=== PATIENT | female | born 1980 | race Caucasian/White ===

== ENCOUNTER 2020-09-15 12:31 | Outpatient (REF) | payer BC, SELFPAY ==
[2020-09-15 20:35] LABS: ALT 24 U/L (14-59); AST 14 U/L (15-37); Albumin 4.3 g/dL (3.4-5.0); Alkaline Phosphatase 73 U/L (46-116); Anion Gap 8.9 mmol/L (3-11); BUN 18 mg/dL (7-18); Bilirubin, Total 0.4 mg/dL (0.2-1.0); CO2 30.1 mmol/L (21.0-32.0); CREATININE 0.7 mg/dL (0.55-1.02); Calcium 9.5 mg/dL (8.5-10.1); Calculated LDL 104 mg/dL (<100); Chloride 104 mmol/L (98-107); Cholesterol 174 mg/dL (<200); Glucose 79 mg/dL (74-106); HDL Cholesterol 63 mg/dL (40-60); Potassium 4.3 mmol/L (3.5-5.1); Sodium 143 mmol/L (136-145); Total Protein 7.6 g/dL (6.4-8.2); Triglyceride 36 mg/dL (<150)
== END 2020-09-15 12:32 | disposition home or self-care (01) ==
LOC: NCHCN 12:31
PROVIDERS: Visit Provider Family Medicine
DX: Z00.00 Encounter for general adult medical examination without abnormal findings (principal); Z13.220 Encounter for screening for lipoid disorders; Z13.228 Encounter for screening for other metabolic disorders
CPT/HCPCS: 80053; 80061

== ENCOUNTER 2023-08-14 16:20 | Outpatient (REF) | payer BC, SELFPAY ==
[2023-08-14 21:43] LABS: ALT 24 U/L (14-59); AST 17 U/L (15-37); Albumin 4.1 g/dL (3.4-5.0); Alkaline Phosphatase 59 U/L (46-116); Anion Gap 10.7 mmol/L (3-11); BUN 17 mg/dL (7-18); Bilirubin, Total 0.4 mg/dL (0.2-1.0); CO2 28.3 mmol/L (21.0-32.0); CREATININE 0.9 mg/dL (0.55-1.02); Calcium 9.6 mg/dL (8.5-10.1); Chloride 103 mmol/L (98-107); Estimated GFR 82.88 (mL/min/1.73m2); Glucose 82 mg/dL (74-106); Sodium 142 mmol/L (136-145); Total Protein 7.7 g/dL (6.4-8.2)
[2023-08-14 21:50] LABS: Vitamin D 25 Total 18.6 ng/mL (30-100)
[2023-08-14 22:03] LABS: Calculated LDL 149 mg/dL (<100); Cholesterol 229 mg/dL (<200); HDL Cholesterol 65 mg/dL (40-60); Triglyceride 79 mg/dL (<150)
== END 2023-08-14 16:21 | disposition home or self-care (01) ==
LOC: NCHCN 16:20
PROVIDERS: PCP Family Medicine; Visit Provider Family Medicine
DX: Z00.00 Encounter for general adult medical examination without abnormal findings (principal); Z13.220 Encounter for screening for lipoid disorders; Z13.228 Encounter for screening for other metabolic disorders
CPT/HCPCS: 80053; 80061; 82306

== ENCOUNTER 2024-05-14 08:46 | Outpatient (CLI) | payer BC, SELFPAY ==
[2024-05-14 08:18] LABS: ESR 1 mm/hr (0-20)
[2024-05-14 08:36] LABS: Creatine Kinase 53 U/L (26-192)
[2024-05-14 08:39] LABS: C-Reactive Protein < 0.50 mg/dL (<or=0.5)
[2024-05-14 08:51] LABS: Calculated LDL 137 mg/dL (<100); Cholesterol 224 mg/dL (<200); HDL Cholesterol 75 mg/dL (40-60); Triglyceride 62 mg/dL (<150)
== END 2024-05-14 08:47 | disposition home or self-care (01) ==
LOC: LBO 08:46
PROVIDERS: PCP Family Medicine; Visit Provider Family Medicine
DX: M79.10 Myalgia, unspecified site (principal); Z13.220 Encounter for screening for lipoid disorders
CPT/HCPCS: 36415; 80061; 82550; 85652; 86140

== ENCOUNTER 2024-05-19 01:01 | Outpatient (CLI) | payer BC, SELFPAY ==
--- NOTE | 2024-05-19 13:45 | DI.MRI_ITS ---
Exam(s) MR CERVICAL SPINE WO EXAM: MR CERVICAL SPINE WO CLINICAL HISTORY: CERVICALGIA M54.2 TECHNIQUE: Multiplanar multisequence MRI of the cervical spine was performed without intravenous con trast. COMPARISON: There are no plain films of the cervical spine available at the time of this MRI interpr etation. FINDINGS: CERVICOMEDULLARY JUNCTION: Intact with no evidence of cerebellar tonsillar ectopia. No obvious abnor mality of the odontoid process. No evidence of Chiari 1 malformation. CERVICAL SPINAL CORD: There is no abnormal signal in the cervical spinal cord and no evidence of foca l cord atrophy nor focal cord swelling. OSSEOUS:There are no cervical fractures evident. No significant osseous lesions in the cervical vert ebrae. There is straightening of the cervical curvature most probably related to muscle spasm. INDIVIDUAL LEVELS: C2-3: No disc herniation nor central canal stenosis. No foraminal stenosis. No facet arthropathy. C3-4: No disc herniation nor central canal stenosis.No facet arthropathy. No foraminal stenosis. C4-5: No disc herniation nor central canal stenosis.No facet arthropathy. No foraminal stenosis C5-6: No disc herniation or central canal stenosis. No significant foraminal stenosis. No significa nt facet arthropathy. C6-7: This level exhibits chronic disc space narrowing and anterior osseous lipping. Posteriorly the re is central-right paracentral disc herniation which extends posteriorly 6 mm and is 10 mm wide. Th is disc protrusion effaces the anterior thecal sac and compresses the anterior aspect of the cervical cord at this level resulting in an element of central canal stenosis. The AP measurement of the sergio tral canal from the posterior aspect of the disc herniation is 7 mm. (The AP dimension of the canal at the other levels measures 10-11 mm). There also small bilateral Luschka joint osteophytes/disc co mplexes at this level. However, the disc protrusion described above does not appear to extend apprec iably into the exiting neural foramen on either side. There is mild bilateral foraminal stenosis whi ch is mostly related to the bilateral disc-osteophyte complexes this level. C7-T1: No disc herniation nor central canal stenosis. No facet arthropathy.No foraminal stenosis. IMPRESSION: 1. Main findings here at the C6-7 level where there is a prominent central-right paracentral disc her niation which flattens the anterior aspect of the thecal sac and indents the anterior aspect of the s billy cord at this level, resulting in an AP dimension of the central spinal canal of 7 mm. 2. At the same level there are also independent bilateral Luschka joint osteophyte-disc complexes whi ch result in mild bilateral foraminal stenosis at this level. DATA REPOSITORY:
== END 2024-05-19 01:21 ==
PROVIDERS: PCP Family Medicine; Visit Provider Family Medicine
DX: M50.223 Other cervical disc displacement at C6-C7 level (principal)
CPT/HCPCS: 72141

== ENCOUNTER 2024-08-27 08:42 | Outpatient (CLI) | payer BC, SELFPAY ==
[2024-08-27 09:55] LABS: ALT 18 U/L (14-59); AST 16 U/L (15-37); Albumin 3.6 g/dL (3.4-5.0); Alkaline Phosphatase 56 U/L (46-116); Anion Gap 7.8 mmol/L (3-11); BUN 16 mg/dL (7-18); Bilirubin, Total 0.5 mg/dL (0.2-1.0); CO2 28.2 mmol/L (21.0-32.0); CREATININE 0.7 mg/dL (0.55-1.02); Calcium 9.3 mg/dL (8.5-10.1); Calculated LDL 94 mg/dL (<100); Chloride 106 mmol/L (98-107); Cholesterol 165 mg/dL (<200); Estimated GFR 111.36 (mL/min/1.73m2); Glucose 89 mg/dL (74-106); HDL Cholesterol 64 mg/dL (>or=50); Potassium 3.9 mmol/L (3.5-5.1); Sodium 142 mmol/L (136-145); Total Protein 7.1 g/dL (6.4-8.2); Triglyceride 39 mg/dL (<150)
[2024-08-27 10:56] LABS: Vitamin D 25 Total 18 ng/mL (30-100)
== END 2024-08-27 08:43 | disposition home or self-care (01) ==
LOC: LBO 08:42
PROVIDERS: PCP Family Medicine; Visit Provider Family Medicine
DX: M79.10 Myalgia, unspecified site (principal); Z00.00 Encounter for general adult medical examination without abnormal findings
CPT/HCPCS: 36415; 80053; 80061; 82306